=== PATIENT | male | born 1950 | race Caucasian/White ===

== ENCOUNTER → 2018-10-18 | Outpatient (CLI) | payer MEDICARE, MEDICAID ==
[~2018-10-18] MED LIST: HYTRIN5 M1 PO; LISINOPRIL5 MG PO; Methadone Hydro10 MG PO; PRILOSEC20 M1 PO; RIBAVIRIN200 MG PO; [UNRECOGNIZED DRUG - OTHER] SC
== END | disposition home or self-care (01) ==
LOC: MRI 08:48
DX: M48.061 Spinal stenosis, lumbar region without neurogenic claudication (principal); M48.02 Spinal stenosis, cervical region; M47.816 Spondylosis without myelopathy or radiculopathy, lumbar region; M47.812 Spondylosis without myelopathy or radiculopathy, cervical region; M12.88 Other specific arthropathies, not elsewhere classified, other specified site; N28.1 Cyst of kidney, acquired; M51.26 Other intervertebral disc displacement, lumbar region; M50.30 Other cervical disc degeneration, unspecified cervical region; M25.78 Osteophyte, vertebrae

== ENCOUNTER 2020-03-11 13:51 | Inpatient (IN) | payer MEDICARE ==
[~2020-03-11] VITALS: Ht 167.6 cm; Wt 84.8 kg
[2020-03-11 14:19] VITALS: BP 128/81
[2020-03-11 15:49] LABS: HEMATOCRIT 36.3 % (42.0-52.0); MEAN CELL VOLUME 90.3 fl (80.0-94.0); MEAN CORPUSCULAR HGB 29.9 pg (27.0-31.0); MEAN CORPUSCULAR HGB CONC 33.1 g/dl (33.0-37.0); MEAN PLATELET VOLUME 9.7 fl (9.6-12.3); NUCLEATED RED BLOOD CELL 0.3 % (0.0-0.0); PLATELET COUNT AUTOMATED 137 10*3/uL (130-400); RED BLOOD COUNT 4.02 10*6/uL (4.50-5.90); RED CELL DISTRI WIDTH 11.9 % (0-14.5); WHITE BLOOD COUNT 8.9 10*3/uL (4.8-10.8)
[2020-03-11 15:52] VITALS: BP 110/68; BP 118/76
[2020-03-11 16:07] LABS: ALBUMIN 2.8 gm/dl (3.1-4.5); ALKALINE PHOSPHATASE 199 U/L (45-117); BUN 24 mg/dl (7-24); CHLORIDE 103 mmol/L (98-107); CPK 220 U/L (39-308); CREATININE 1.38 mg/dL (0.70-1.30); SGOT/AST 254 IU/L (3-35); SGPT/ALT 53 U/L (12-78); SODIUM 141 mmol/L (136-145); TOTAL PROTEIN 7.3 gm/dL (6.4-8.2)
[2020-03-11 16:09] LABS: TROPONIN I < 0.015 ng/ml (<0.045)
[2020-03-11 16:12] LABS: TOTAL CELLS COUNTED 100 #CELLS
[2020-03-11 16:14] LABS: PLATELET SUFFICIENCY LOW (NORMAL)
[2020-03-11 16:18] LABS: ACT PARTIAL THROMBO TIME 25.7 SECONDS (20.0-32.1); INTERNATIONAL NORM RATIO 1.2 (2.0-3.5)
[2020-03-11 19:36] VITALS: BP 120/71
[2020-03-11 22:07] LABS: BILIRUBIN Negative (Negative); BLOOD Negative (Negative); CLARITY Clear (Clear); COLOR Yellow (Yellow); GLUCOSE Negative (Negative); KETONE Negative (Negative); LEUKO ESTERASE Negative (Negative); NITRITE Negative (Negative); PH 5.5 (4.5-8.0)
[2020-03-11 22:30] LABS: WBC 0-2 wbc/hpf (0-5)
[2020-03-12] VITALS (7 sets, daily range): BP systolic 116–150; BP diastolic 62–82
[2020-03-12 05:49] LABS: ALBUMIN 2.4 gm/dl (3.1-4.5); BUN 24 mg/dl (7-24); CHLORIDE 108 mmol/L (98-107); POTASSIUM 3.5 mmol/L (3.5-5.1); SGOT/AST 252 IU/L (3-35); SGPT/ALT 44 U/L (12-78); SODIUM 143 mmol/L (136-145)
[2020-03-12 05:51] LABS: ALKALINE PHOSPHATASE 168 U/L (45-117); TOTAL PROTEIN 6.3 gm/dL (6.4-8.2)
[2020-03-12 06:14] LABS: HEMATOCRIT 33.2 % (42.0-52.0); MEAN CELL VOLUME 92.7 fl (80.0-94.0); MEAN CORPUSCULAR HGB 30.4 pg (27.0-31.0); MEAN CORPUSCULAR HGB CONC 32.8 g/dl (33.0-37.0); MEAN PLATELET VOLUME 10.5 fl (9.6-12.3); NUCLEATED RED BLOOD CELL 0.5 % (0.0-0.0); PLATELET COUNT AUTOMATED 125 10*3/uL (130-400); RED BLOOD COUNT 3.58 10*6/uL (4.50-5.90); WHITE BLOOD COUNT 7.9 10*3/uL (4.8-10.8)
[2020-03-12 06:38] LABS: BASOPHILS 1 % (0-1); PLATELET SUFFICIENCY NORMAL (NORMAL); TOTAL CELLS COUNTED 100 #CELLS
[2020-03-12 06:39] LABS: POLYCHROMASIA SLIGHT
[2020-03-12] MEDS ORDERED: HYDROCODONE-AC1 EACH PO (21:39)
[2020-03-12] MEDS ORDERED: VITAMIN E-20200 UNIT PO (21:40)
[2020-03-12] MEDS ORDERED: ATORVASTATIN CA20 M1 PO (21:40)
[2020-03-12] MEDS ORDERED: FEROSUL325 M1 PO (21:40)
[2020-03-12] MEDS ORDERED: PREDNISONE5 MG PO (21:41)
[2020-03-12] MEDS ORDERED: VITAMIN C PO (21:43)
[2020-03-12] MEDS ORDERED: OXYBUTYNIN CHLOR5 M1 PO (21:44)
[2020-03-13] VITALS: BP 143/76
[2020-03-13 06:41] LABS: HEMATOCRIT 32.1 % (42.0-52.0); MEAN CELL VOLUME 91.7 fl (80.0-94.0); MEAN CORPUSCULAR HGB CONC 32.7 g/dl (33.0-37.0); MEAN PLATELET VOLUME 9.9 fl (9.6-12.3); NUCLEATED RED BLOOD CELL 0.1 10*3/uL (0.0-0.0); NUCLEATED RED BLOOD CELL 1.4 % (0.0-0.0); PLATELET COUNT AUTOMATED 104 10*3/uL (130-400); RED CELL DISTRI WIDTH 12.3 % (0-14.5); WHITE BLOOD COUNT 6.6 10*3/uL (4.8-10.8)
[2020-03-13 07:05] LABS: ALBUMIN 2.4 gm/dl (3.1-4.5); ALKALINE PHOSPHATASE 170 U/L (45-117); BUN 22 mg/dl (7-24); CHLORIDE 107 mmol/L (98-107); CREATININE 1.27 mg/dL (0.70-1.30); POTASSIUM 3.9 mmol/L (3.5-5.1); SGOT/AST 303 IU/L (3-35); SGPT/ALT 41 U/L (12-78); SODIUM 141 mmol/L (136-145); TOTAL PROTEIN 6.4 gm/dL (6.4-8.2)
[2020-03-13 07:26] LABS: BASOPHILS 1 % (0-1); OVALOCYTES FEW; PLATELET SUFFICIENCY LOW (NORMAL); ROULEAUX SLIGHT; TOTAL CELLS COUNTED 100 #CELLS
[2020-03-13 08:00] VITALS: BP 147/81
[2020-03-13 12:00] VITALS: BP 147/74
[2020-03-13 16:00] VITALS: BP 141/74
[2020-03-13 20:00] VITALS: BP 126/71
[2020-03-14] VITALS: BP 119/68
[2020-03-14 06:31] LABS: HEMATOCRIT 28.9 % (42.0-52.0); MEAN CELL VOLUME 94.4 fl (80.0-94.0); MEAN CORPUSCULAR HGB 30.4 pg (27.0-31.0); MEAN CORPUSCULAR HGB CONC 32.2 g/dl (33.0-37.0); MEAN PLATELET VOLUME 10.2 fl (9.6-12.3); NUCLEATED RED BLOOD CELL 0.3 % (0.0-0.0); PLATELET COUNT AUTOMATED 81 10*3/uL (130-400); RED BLOOD COUNT 3.06 10*6/uL (4.50-5.90); RED CELL DISTRI WIDTH 12.5 % (0-14.5); WHITE BLOOD COUNT 6.8 10*3/uL (4.8-10.8)
[2020-03-14 06:51] LABS: ALBUMIN 2.3 gm/dl (3.1-4.5); ALKALINE PHOSPHATASE 162 U/L (45-117); BUN 23 mg/dl (7-24); CHLORIDE 113 mmol/L (98-107); CREATININE 1.14 mg/dL (0.70-1.30); POTASSIUM 3.4 mmol/L (3.5-5.1); SGOT/AST 280 IU/L (3-35); SGPT/ALT 33 U/L (12-78); SODIUM 144 mmol/L (136-145); TOTAL PROTEIN 5.9 gm/dL (6.4-8.2)
[2020-03-14 07:07] LABS: TOTAL PROTEIN, SERUM 6.1 g/dL (6.0-8.5)
[2020-03-14 07:14] LABS: ATYPICAL LYMPHS 1 % (0-0); BURR CELLS FEW; PLATELET SUFFICIENCY LOW (NORMAL); ROULEAUX SLIGHT; TOTAL CELLS COUNTED 100 #CELLS
[2020-03-14 08:00] VITALS: BP 128/71
[2020-03-14 12:00] VITALS: BP 133/70
[2020-03-14 16:00] VITALS: BP 151/82
[2020-03-14 20:00] VITALS: BP 136/58; BP 158/86
[2020-03-15] VITALS: BP 160/78
[2020-03-15 06:54] LABS: HEMATOCRIT 29.6 % (42.0-52.0); MEAN CELL VOLUME 92.5 fl (80.0-94.0); MEAN CORPUSCULAR HGB 30.9 pg (27.0-31.0); MEAN CORPUSCULAR HGB CONC 33.4 g/dl (33.0-37.0); MEAN PLATELET VOLUME 9.8 fl (9.6-12.3); NUCLEATED RED BLOOD CELL 0.1 10*3/uL (0.0-0.0); NUCLEATED RED BLOOD CELL 0.6 % (0.0-0.0); PLATELET COUNT AUTOMATED 78 10*3/uL (130-400); RED CELL DISTRI WIDTH 12.3 % (0-14.5); WHITE BLOOD COUNT 7.8 10*3/uL (4.8-10.8)
[2020-03-15 07:07] LABS: ALBUMIN 2.5 gm/dl (3.1-4.5); ALKALINE PHOSPHATASE 185 U/L (45-117); BUN 20 mg/dl (7-24); CHLORIDE 110 mmol/L (98-107); CREATININE 1.21 mg/dL (0.70-1.30); POTASSIUM 3.3 mmol/L (3.5-5.1); SGOT/AST 311 IU/L (3-35); SGPT/ALT 37 U/L (12-78); SODIUM 145 mmol/L (136-145); TOTAL PROTEIN 6.4 gm/dL (6.4-8.2)
[2020-03-15 07:25] LABS: BASOPHILS 1 % (0-1); PLATELET SUFFICIENCY LOW (NORMAL); POLYCHROMASIA SLIGHT; TOTAL CELLS COUNTED 100 #CELLS
[2020-03-15 08:00] VITALS: BP 136/76
[2020-03-15 12:00] VITALS: BP 151/78
[2020-03-15] MEDS ORDERED: PANTOPRAZOLE SO40 MG PO (13:01)
[2020-03-15 14:08] LABS: A/G RATIO 0.8 (0.7-1.7); ALBUMIN 2.7 g/dL (2.9-4.4); ALPHA-1-GLOBULIN 0.4 g/dL (0.0-0.4); ALPHA-2-GLOBULIN 1.1 g/dL (0.4-1.0); BETA GLOBULIN 1.1 g/dL (0.7-1.3); GAMMA GLOBULIN 0.8 g/dL (0.4-1.8); GLOBULIN, TOTAL 3.4 g/dL (2.2-3.9); M-SPIKE Not Observed g/dL (Not Observed)
[2020-03-15 16:12] LABS: FREE KAPPA LIGHT CHAINS 30.4 mg/L (3.3-19.4); FREE LAMBDA LIGHT CHAINS 43.8 mg/L (5.7-26.3); KAPPA/LAMBDA RATIO 0.69 (0.26-1.65)
== END 2020-03-15 15:44 | disposition home or self-care (01) | DRG 641 ==
LOC: ED 13:51 → 5E 16:47 → EDHOLD 16:47 → 5E 03-12 17:29 → EDHOLD 03-12 17:37 → 5E 03-12 21:13
PROVIDERS: Emergency Medicine; ADMIT Internal Medicine; ATTEND Internal Medicine
DX: E83.52 Hypercalcemia (principal); N17.9 Acute kidney failure, unspecified; E44.0 Moderate protein-calorie malnutrition; I24.8 Other forms of acute ischemic heart disease; R26.89 Other abnormalities of gait and mobility; R74.01 Elevation of levels of liver transaminase levels; E83.42 Hypomagnesemia; R91.8 Other nonspecific abnormal finding of lung field; R79.89 Other specified abnormal findings of blood chemistry; R00.0 Tachycardia, unspecified; R63.4 Abnormal weight loss; F17.200 Nicotine dependence, unspecified, uncomplicated; D72.810 Lymphocytopenia; R74.8 Abnormal levels of other serum enzymes; E87.6 Hypokalemia; D69.6 Thrombocytopenia, unspecified; D64.9 Anemia, unspecified; E66.01 Morbid (severe) obesity due to excess calories; K21.9 Gastro-esophageal reflux disease without esophagitis; I10 Essential (primary) hypertension; E78.5 Hyperlipidemia, unspecified; Z68.29 Body mass index [BMI] 29.0-29.9, adult